=== PATIENT | female | born 1955 | race Caucasian/White ===

== ENCOUNTER 2023-08-31 09:45 | Outpatient (REF) | payer MEDICARE, SELFPAY | END 2023-08-31 09:46 | disposition home or self-care (01) | LOC: HO.SH 09:45 | PROVIDERS: Visit Provider Nurse Practitioner Family | DX: Z01.118 Encounter for examination of ears and hearing with other abnormal findings (principal); H90.3 Sensorineural hearing loss, bilateral | CPT/HCPCS: 92557; 92567 ==

== ENCOUNTER 2024-10-06 12:28 | Outpatient (AMB) | payer MEDICARE, SELFPAY ==
--- OUTSIDE RECORDS SUMMARY | 2023-12-23 13:30 | XMS_ITS | Encounter Summary ---
Author Organization [facility] [place] [address] Care Team Providers Care Transmission And Protection Engineer Name Role Phone Riana Mora MD Primary Care Prov ider Encounter Details Date Type Department Care Team (Late st Contact Info) Description 12/23/2023 1:30 PM EDT Hospital Encounter TH HISTORIC ENCOUNTERS EASTERN CONVERSION ONLY Josué Portillo MD [address] [place] [id number] Social History Tobacco Use Types Packs/Day Years Used Date Smoking Tobacco: Never Smokeless Tobacco: Never Alcohol Use Standard Drinks/Week Comments No 0 (1 standard drink = 0.6 oz pur e alcohol) Housing Instability Answer Date Recorde d Are you worried that in the next 2 months you may not have stable housing? No 03/02/2024 Food Access & Nutrition Answer Date Rec orded Do you have access to a vari ety of food including fruits and vegetables? Yes 03/02/2024 Health Literacy Answer Date Recorded How often do you need to hav e someone help you when you read instructions, pamphlets, or other written material from your doctor or pharmacy? Never 03/02/2024 Caregiver: How often do you need to have someone help you when you read instructions, pamphlets, or other written material from your doctor or pharmacy? Not on file 03/02/2024 Financial Risk Answer Date Recorded How hard is it for you to pa y for the very basics like food, housing, medical care, and air conditioning / heating? Not very hard 03/02/2024 Transportation Answer Date Recorded Has the lack of transportati on kept you from meetings, work, or from getting things needed for daily living? No Has the lack of transportati on kept you from medical appointments or from getting medications? No 03/02/2024 Social Isolation Answer Date Recorded How often do you feel lonely or isolated from th ose around you? Never 03/02/2024 Food Risk Answer Date Recorded Within the past 12 months we worried whether our food would run out before we got money to buy more. Never true 03/02/2024 Within the past 12 months th e food we bought just didn't last and we didn't have money to get more. Never true 03/02/2024 Dependent Care Answer Date Recorded Do you need help finding or paying for care for your loved ones. For example, early childhood services coordinator or elderly care for an older adult? No 03/02/2024 Education Answer Date Recorded Do you think completing more education or training, like finishing a GED, going to college, or learning a trade, would be helpful for you? No 03/02/2024 Employment and Income Answer Date Recor ded During the last four weeks, have you been actively looking for work? No 03/02/2024 Living Situation Answer Date Recorded What is your living situation? 1 05/03/2023 Comments No Sex and Gender Information Value Date Recorded Sex Assigned at Not on file Legal Sex Female 7:45 AM EST Gender Identity Not on file Sexual Orientation Not on file documented as of this encounter Plan of Treatment Upcoming Encounters Date Type Department Care Team (Late st Contact Info) Description 12/01/2024 11:30 AM EDT Office Visit Adult Medicine [address] [phone] Riana Mora MD [address] [place] [address] documented as of this encounter Visit Diagnoses Not on filedocumented in this encounter Care Teams Transmission And Protection Engineer Relationship Specialty Start Date End Date Riana Mora MD PCP - General 12/23/23 01/02/24 documented as of this encounter
--- NOTE | 2024-10-06 12:31 | AM.OFFWIN_ITS ---
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 denies injury. pt admits to some swelling. Patient Tobacco Use Status: Never used Tobacco Allergies oxycodone Adverse Reaction (Mild, Verified 10/06/24 12:32) Rash Do you need a note to return to daycare/school/sports/work: No HPI HPI Comments History of Present Illness Details This is a 69-year-old female with a past medical history of depression presenting for evaluation of right leg pain. Patient reports limping for the past 1 week due to pain behind her right knee. She denies any injury or trauma and has been taking Tylenol only without relief for discomfort. Patient denies having any pain in her right calf or her right foot, but feels her right lower leg is swollen. She denies any recent travel, fevers, chills, chest pain or shortness of breath. Patient is also requesting a COVID test due to upcoming travel. She reports minimal left ear pain but has no additional complaints at this time. FORMERLY [facility], [facility]–1983 Social History Patient Tobacco Use Status: Never used Tobacco Review of Systems Const All systems reviewed & are unremarkable except as noted in HPI and below Reports no additional complaints Card Denies chest pain and Denies dyspnea Resp Denies dyspnea Musc Details: pain right posterior knee Skin/Breast Reports system reviewed and no additional complaints, except as documented, Denies change in pigmentation, Denies non-healing lesions and Denies erythema Neuro Reports no additional complaints Psych Reports no additional complaints Endo Reports no additional complaints Blade/Lymph Reports no additional complaints Aller/Immun Reports no additional complaints Physical Exam HEENT Head: Yes normal to inspection Ears: hearing grossly normal bilaterally, external ears normal, TM's normal bilaterally and EAC's normal General nose exam: Normal external nose present Mouth: Normal oral and palatal mucosa present and moist mucous membranes Teeth and gingiva: dentition normal Throat: Yes posterior oropharynx normal Eyes General: appearance normal, both eyes and all related structures Skin Other: no erythema of RLE Extrem Right lower extremity: edema (non.pitting edema distal RLE) Details: non-pitting and knee (pain to palpation posterior fossa; passive ROM intact) Details: tenderness and normal ROM Psych Appearance: grossly normal Mental Status: mental status grossly normal Insight: Good insight present (Psych) Judgement: Good judgement present (Psych) Assessment & Plan Assessment & Plan (1) Posterior right knee pain: Comment: Differential includes DVT or posterior fossa cyst; stat ultrasound of the right lower extremity will be obtained. Code(s): M25.561 - Pain in right knee Plan: Doppler ultrasound right lower extremity, SARS panel is pending at this time. Orders: Orders US venous duplex LE RT Today M79.604 - Pain in right leg SARS-CoV2/FLU/RSV Today J06.9 - Acute upper respiratory infection, unspecified Coding Level of Care Code New Pt Level 4 (30276) Diagnoses Posterior right knee pain M25.561
--- OUTSIDE RECORDS SUMMARY | 2024-10-06 12:31 | XMS_ITS | Clinical Summary ---
Author Organization [facility] Address [address] [address] Phone Care Team Providers Care Flat Lock Operator Name Role Phone Unknown, Unknown Primary Care Provider Jose brewster Allergies Active Allergy Reactions Criticality Noted Date Comments Latex Rash Low 01/10/2016 Oxycodone Nausea And Vomiting,Other (See Comments) 09/18/2015 Syncope vomitting Pollen Extracts 12/18/2020 Red Dye 12/18/2020 Medications acetaminophen (TYLENOL) 325 mg tablet Take 650 mg by mouth. 02/03/2021 Active cholecalciferol (VITAMIN D3) 2,000 unit tablet Take 1,000 Units by mouth daily. Active calcium carbonate 1,250 mg (500 mg elemental) capsule Take 1,250 mg by mouth daily. Active ASCORBIC ACID, VITAMIN C, ORAL Take 500 mg by mouth daily. Active venlafaxine (EFFEXOR) 25 MG tablet 1 1/4 tab daily for 2 weeks then 1 tab daily 34 tablet 3 01/20/2023 Active Active Problems Problem Noted Date Diagnosed Date Impacted cerumen, bilateral 01/20/2023 Elevated blood pressure read ing without diagnosis of hypertension 01/20/2023 Conductive hearing loss, bilateral 01/20/2023 History of breast cancer 06/18/2022 Overview (01/20/2023): 2007 right breast 2015 left breast Treated with lumpectomy and radiation Assessment & Plan (06/18/2022 9:15 AM EDT): Followed by Dr. Mcgarry On Arimidex Osteoporosis without current pathological fractu re 06/18/2022 Assessment & Plan (06/18/2022 9:15 AM EDT): On Fosamax Bone Density recently ordered by Onc due to being on Arimidex Hyperlipidemia 06/18/2022 Assessment & Plan (06/18/2022 9:14 AM EDT): recently checked per patient Need to obtain results Anxiety disorder 06/18/2022 Assessment & Plan (06/18/2022 9:13 AM EDT): Stable on med Acute pain of right knee 06/18/2022 Assessment & Plan (06/18/2022 9:12 AM EDT): Unclear etiology Refer to PT for further eval Prn ibuprofen History of parathyroidectomy 06/18/2022 Assessment & Plan (06/18/2022 9:13 AM EDT): Per patient recent lab work at [facility] may have shown elevated Calcium Need to obtain those lab results Vitamin D deficiency, unspecified 06/18/2022 Assessment & Plan (06/18/2022 9:15 AM EDT): Unclear if stable, check lab Numbness of right foot 06/18/2022 Assessment & Plan (06/18/2022 9:14 AM EDT): ? Radicular vs. Peripheral Per patient, also with weakness in RLE Check EMG See wrap up Immunization declined 06/18/2022 Assessment & Plan (06/18/2022 9:16 AM EDT): She doesn't have her immunization record with her but she thinks that she received the pna vaccine Varicosities of leg 01/03/2016 01/20/2023 Immunizations Immunization Administration Dates Next Due COVID-19 (Pre) James Vaccine, rS-Ad26, PF 06/05/2020 COVID-19 (Pre) Moderna Vaccine, mRNA, PF 02/23/2022 COVID-19 (Pre) Pfizer Vaccine, mRNA, PF 02/18/2021 Influenza High-Dose Quadriva lent Preservative Free IM 12/19/2022 Influenza High-Dose Trivalen t Preservative Free IM 12/26/2019,01/31/2019 Influenza Trivalent w/ Preservative IM 8,04/16/2017,02/02/2016 Influenza, Unspecified Formulation 01/20/2022,,01/13/2018 Pneumococcal polysaccharide PPSV23 05/01/2021 Tdap 10/30/2019 Family History Medical History Relation Comments Melanoma Brother Stomach cancer Brother COPD Father Diabetes type II Father Skin cancer Father Alzheimer's disease Mother Graves' disease Mother Heart failure Mother Thyroid cancer Niece Kidney disease Sister Stomach cancer Sister Relation Status Comments Brother Alive Daughter Father Mother Niece Alive Sister Social History Tobacco Use Types Packs/Day Years Used Date Smoking Tobacco: Never Smokeless Tobacco: Never Alcohol Use Standard Drinks/Week Comments Yes 0 (1 standard drink = 0.6 oz pur e alcohol) 1-2 x month, 1 glass of wine Child or Family Care Answer Date Record ed Do you have problems with on e of the following making it difficult for you to work, study, or receive health care? No 06/18/2022 Education Answer Date Recorded Are you interested in more education? Not on jason e 06/19/2024 Are you concerned about learning? Not on file 06/19/2024 No 06/19/2024 No 06/19/2024 Food Answer Date Recorded Within the past 6 months we worried whether our food would run out before we got money to buy more. Never True 06/18/2022 Within the past 6 months the food we bought just didn't last and we didn't have enough money to get more. Never True Residential Stability Answer Date Recor ded What is your housing situation today? I have gilson sing 06/18/2022 How many times have you move d in the past 12 months? Zero (I did not move) 06/18/2022 Paying for Meds Answer Date Recorded Do you have trouble paying for medicines? No 06/18/2022 Paying Utility Bills Answer Date Record ed Do you have trouble paying your heating or elect ricity bill? No 06/18/2022 Transportation Answer Date Recorded Has the lack of transportati on kept you from medical appointments or from getting medications? No 06/18/2022 Unemployment Answer Date Recorded Are you currently unemployed or working on a part-time or temporary basis, and looking for work? No 06/18/2022 Digital Access Answer Date Recorded No 08/15/2022 No 08/15/2022 Reliable internet access at home? Not on file 08/15/2022 Device with a working camera? Not on file Intimate Partner Violence Answer Date R ecorded Denied Basic Needs Not on file 06/18/2022 In the past 12 months have y ou been in a relationship with a person who hurts, threatens, or tries to control you? No 06/18/2022 Worried food would run out Not on file 06/18 In the past 12 months have y ou been in a relationship with a person who hurts, threatens, or tries to control you? No 06/18/2022 Comments No Sex and Gender Information Value Date Recorded Sex Assigned at Female 06/18/2022 8:25 AM EDT Legal Sex Female 6:11 PM EDT Gender Identity Female 06/18/2022 8:25 AM EDT Sexual Orientation Not on file Last Filed Vital Signs Vital Sign Reading Time Taken Comments Blood Pressure 154/74 01/20/2023 11:42 AM EDT Pulse 79 01/20/2023 10:48 AM EDT Temperature 36.2 C (97.2 F) 10/27/2022 10:35 AM EDT Respiratory Rate 16 01/20/2023 10:48 AM EDT Oxygen Saturation 98% 01/20/2023 10:48 AM EDT Inhaled Oxygen Concentration - - Weight 72.2 kg (159 lb 3.2 oz) 01/20/2023 10:48 AM EDT Height 160 cm (5' 2.99 ) 01/20/2023 10:48 AM EDT Body Mass Index 28.21 01/20/2023 10:48 AM EDT Plan of Treatment Health Maintenance Due Date Last Done Comments COLOGUARD 1998 COLONOSCOPY 1998 COLORECTAL CANCER SCREENING 1998 FIT TEST 1998 FOBT 1998 SIGMOIDOSCOPY 1998 VIRTUAL COLONOSCOPY 1998 ZOSTER VACCINES (1 of 2) 08/01/2003 PNEUMOCOCCAL VACCINES (50+ years) (2 of 2 - PCV) 05/01/2022 05/01/2021 DEPRESSION SCREENING 06/19/2023 06/18/2022 COVID-19 VACCINE (2023- season) 2023 02/23/2022, 02/18/2021, 06/05/2020 MAMMOGRAM 05/18/2024 05/18/2022 LIPID PANEL 03/19/2027 03/19/2022, 02/20, 03/19/2022, Additional history exists RSV VACCINE (1 - 1-dose 75+ series) 2028 Adult Td,Tdap Booster 10/29/2029 10/30/2019 HEPATITIS C SCREENING Completed 01/03/2018 OSTEOPOROSIS SCREENING INITIAL (ONE-TIME) Completed 06/11/2022 SMOKING STATUS SCREENING (Once After 26 Yrs) Completed 01/20/2023 HEPATITIS A VACCINES Aged Out No long er eligible based on patient's age to complete this topic HIB VACCINES Aged Out No longer eligi ble based on patient's age to complete this topic MENINGOCOCCAL VACCINES (ACWY) Aged Out No longer eligible based on patient's age to complete this topic MENINGOCOCCAL VACCINES (B) Aged Out N o longer eligible based on patient's age to complete this topic Medical Devices Not on file Procedures Procedure Name Priority Date/Time Associated Diagnosis Comments OUTSIDE BONE DENSITY SCREENING Routine 06/11/2022 HM MAMMOGRAPHY Routine 05/18/2022 OUTSIDE HDL Routine 03/19/2022 OUTSIDE HEPATITIS C VIRUS SCREENING Routine 01/03/2018 from Last 3 Months or Most Recently Relevant to Health Maintenance Results * OUTSIDE BONE DENSITY SCREENING (06/11/2022) BONE DENSITY SCREENING - EXTERNAL Osteopenia us Historical Provider HEALTH MAINTENANCE Final Result * MAMMOGRAPHY FOR RESULT ENTRY ONLY (05/18/2022) Mammogram birads 2 benign us Historical Provider HEALTH MAINTENANCE Final Result * Outside HDL (03/19/2022) HDL - External 62 40 - 80 mg/dL us Historical Provider MD LAB BLOOD ORDERABLES Zaira l Result * Outside Hepatitis C Virus Screening (01/03/2018) Pathologist [facility] Hepatitis C Screening - External Neg us Historical Provider MD LAB BLOOD ORDERABLES Zaira l Result from Last 3 Months or Most Recently Relevant to Health Maintenance [place] [id number] [employer] MEDEX SUPPLEMENT [place] [address] MEDICARE PART A & B [employer] MEDEX SUPPLEMENT MEDICARE PART A & B [employer] MEDEX SUPPLEMENT MEDICARE PART A & B [employer] MEDEX SUPPLEMENT MEDICARE PART A & B [employer] MEDEX SUPPLEMENT MEDICARE PART A & B [employer] MEDEX SUPPLEMENT MEDICARE PART A & B [employer] MEDEX SUPPLEMENT MEDICARE PART A & B [employer] MEDEX SUPPLEMENT MEDICARE PART A & B [employer] MEDEX SUPPLEMENT Member Subscriber Plan / Payer (Ef fective 2018-Present) Name:Shraddha Ribera Relation to Subscriber:Self Name:Shraddha Ribera Payer ID:[id number] (NAIC) Type:[employer] Address: [address] [place] [id number] Care Teams Flat Lock Operator Relationship Specialty Start Date End Date Unknown, Unknown, PCP - General 05/27/23 Additional Source Comments The information contained in this document represents components of the legal health record. It is not the complete legal health record.[facility]
--- OUTSIDE RECORDS SUMMARY | 2024-10-06 12:31 | XMS_ITS | Clinical Summary ---
Author Organization [facility] Address [address] [place] [id number] Care Team Providers Care Field Foreman Name Role Phone Riana Flores MD Primary Care Prov ider Allergies Active Allergy Reactions Criticality Noted Date Comments Latex Rash Low 01/10/2016 Oxycodone 09/07/2016 Oxycodone Hcl Nausea And Vomiting,Other (See Comments) 09/18/2015 Syncope Red Dye #40 (Allura Red) Other (See Comments) 01/03/2016 Facial swelling Medications Medication Sig Dispensed Refills Start Date End Date Status venlafaxine (EFFEXOR) 37.5 MG tablet Take 25.4 mg by mouth daily. 0 Active vitamin D3 (VITAMIN D3) 10 MCG (400 UNIT) tablet Take 1 tablet (400 Units total) by mouth daily. 0 Active Calcium 250 MG CAPS Take by mouth. 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 BRCA neg Left breast ca 06/05/2016 IBS (irritable bowel syndrome) 01/03/2016 Sensorineural hearing loss of both ears 01/03/20 16 Family History Medical History Relation Name Comments Cancer Brother Cancer Father Cataracts Father Cancer Maternal Aunt Cancer Maternal Grandmother Cancer Maternal Uncle Cancer Mother Cataracts Mother Kidney disease Sister Relation Name Status Comments Brother Father Maternal Aunt Maternal Grandmother Maternal Uncle Mother Sister Social History Tobacco Use Types Packs/Day Years Used Date Smoking Tobacco: Never Smokeless Tobacco: Never Alcohol Use Standard Drinks/Week Comments No 0 (1 standard drink = 0.6 oz pur e alcohol) Sex and Gender Information Value Date Recorded Sex Assigned at Not on file Gender Identity Not on file Sexual Orientation Not on file Job Start Date Occupation Industry Not on file Not on file Not on file Last Filed Vital Signs Vital Sign Reading Time Taken Comments Blood Pressure 146/82 12/23/2023 1:28 PM EDT Pulse 73 12/23/2023 1:28 PM EDT Temperature 36.8 C (98.2 F) 12/23/2023 1:28 PM EDT Respiratory Rate - - Oxygen Saturation 97% 12/23/2023 1:28 PM EDT Inhaled Oxygen Concentration - - Weight 70.9 kg (156 lb 6.4 oz) 12/23/2023 1:28 P M EDT Height 160 cm (5' 3 ) 12/24/2022 1:20 PM EDT Body Mass Index 27.71 12/24/2022 1:20 PM EDT Plan of Treatment Health Maintenance Due Date Last Done Comments Hepatitis C Screening 1955 Depression Screening 1965 Preventative Health Evaluation 08/01/1971 Shingrix-Zoster Vaccine (1 of 2) 1972 Colon Cancer Screening (Colonoscopy) 1998 Breast Cancer Screening (Mammogram) 08/01/2003 Fall Risk Assessment 2018 Osteoporosis Screening (DEXA Scan) 2018 COVID-19 Vaccine ( season) 2023 02/18/2021, 06/05/2020 Influenza Vaccine (#1) 2024 3, 12/19/2022, 12/19/2022, Additional history exists RSV Adult > 60+ Yrs or (1 - 1-dose 75+ series) 2028 DTap / Tdap / Td (2 - Td or Tdap) 10/29/2029 10/30/2019 Pneumococcal Vaccine Completed 08/24/2023, 05/01/19 22 Hepatitis B Vaccines Aged Out No long er eligible based on patient's age to complete this topic RSV Ped < 20 months Aged Out No longe r eligible based on patient's age to complete this topic Care Teams Field Foreman Relationship Specialty Start Date End Date Riana Flores MD [address] [place] [address] PCP - General Internal Medicine 12/23/23
[2024-10-06 12:32] VITALS: BP 120/72; PULSE 80; TEMP 36.8; O2SAT 97; BMI 27.8
== END 2024-10-06 13:13 | disposition home or self-care (01) ==
PROVIDERS: Visit Provider Physician Assistant
DX: M25.561 Pain in right knee (principal)

== ENCOUNTER 2024-10-06 13:03 | Outpatient (REF) | payer MEDICARE, SELFPAY ==
--- NOTE | ~2024-10-06 | US_ITS ---
EXAMINATION: US TRIPLEX LOWER EXTREMITY, RIGHT CLINICAL INFORMATION: Right leg pain COMPARISON: None available. TECHNIQUE: Color-flow triplex imaging with spectral analysis and compression Doppler were performed on the right lower extremity. FINDINGS: Respiratory variation, normal compression and augmented flow are noted throughout the right lower extremity. The visualized common femoral vein, superficial femoral vein, profunda femoral vein, popliteal vein and midcalf peroneal and posterior tibial venous segments show no evidence of deep venous thrombosis. There is no Sneed's cyst. US/US venous duplex LE RT IMPRESSION: No evidence of deep venous thrombosis involving the right lower extremity. Electronically signed by: Travis Galeas MD 10/06/2024 01:27 PM EDT
[2024-10-06 17:03] LABS: Resp Syncy Virus RNA Qual PCR NEGATIVE (Negative); SARS COV2 PCR INHOUSE NEGATIVE (Negative)
== END 2024-10-06 13:04 | disposition home or self-care (01) ==
LOC: HO.HMGCX 13:03
PROVIDERS: Physician Assistant; Visit Provider Nurse Practitioner
DX: M25.561 Pain in right knee (principal); M79.604 Pain in right leg; J06.9 Acute upper respiratory infection, unspecified; M79.89 Other specified soft tissue disorders; R60.0 Localized edema; H92.02 Otalgia, left ear
CPT/HCPCS: 87637; 93971; 99202

== ENCOUNTER → 2024-10-06 13:07 | Outpatient (BNV) | payer MEDICARE, SELFPAY | PROVIDERS: Visit Provider Radiology Diagnostic Radiology | DX: M79.604 Pain in right leg (principal) | CPT/HCPCS: 93971 ==